=== PATIENT | male | born 1970 | race Caucasian/White ===

== ENCOUNTER 2017-07-10 22:51 | Emergency (ER) | payer BC ==
[2017-07-10] MEDS ORDERED: PREDNISONE 20 MG TABLET PO ONE (23:30)
[2017-07-10] MEDS ORDERED: FAMOTIDINE 20 MG TABLET PO ONE (23:30)
--- NOTE | 2017-07-10 23:36 | ER Document Report ---
ED ENT - General Stated Complaint: SWOLLEN TONSILS Time Seen by Provider: 07/10/17 23:05 Information source: Patient Notes: 46-year-old male presents emergency department complaining of the feeling of swelling in his throat. He reports he has a history of swelling with his uvula. He cannot tell if it is the uvula or another part of his oropharynx, such as his tonsils, that are swelling currently. He feels it more in the left portion of his oropharynx. He reports he has had episodes with uvula-itis in the past that are fairly short-lived. He reports that when it swells up, he can often relax and get up to go back down. This episode began this evening at approximately 930. He denies any choking or shortness of breath. He has not had any fluids to drink to know if he has difficulty swallowing, but he is handling his secretions well. The patient has recently started taking Humira for his psoriatic arthritis. He received his second dose recently. He has had uvulitis prior to having Humira, so I doubt that this plays a significant role in his current problem. Past Medical History - Social History Smoking Status: Never Smoker Family History: Reviewed & Not Pertinent Review of Systems - Review of Systems Notes: REVIEW OF SYSTEMS: CONSTITUTIONAL : Denies fever, chills, or sweats. Denies recent illness. EENT: Patient with sensation of swelling in his throat. See HPI. CARDIOVASCULAR: Denies chest pain. Denies palpitations or racing or irregular heart beat. RESPIRATORY: Denies cough, cold, or chest congestion. Denies shortness of breath, difficulty breathing, or wheezing. GASTROINTESTINAL: Denies abdominal pain or distention. Denies nausea, vomiting , or diarrhea. GENITOURINARY: Denies difficulty urinating, painful urination, burning, frequency, blood in urine, or discharge. MUSCULOSKELETAL: No acute change but history of osteoarthritis and psoriatic arthritis.. SKIN: History of psoriasis. LYMPHATIC: Denies swollen, enlarged glands. NEUROLOGICAL: Denies confusion or altered mental status. Denies passing out or loss of consciousness. Denies dizziness or lightheadedness. Denies headache. ALL OTHER SYSTEMS REVIEWED AND NEGATIVE. Physical Exam - Notes Notes: PHYSICAL EXAMINATION: GENERAL: Large body habitus. No acute distress.. HEAD: Atraumatic, normocephalic. ENT: The patient's uvula appears to be enlarged, slightly engorged, slightly boggy. This does not occlude his airway. His tonsils are visible but not significantly swollen. There is minimal erythema with the uvula. There is no discharge. No stridor present. NECK: Normal range of motion, supple without lymphadenopathy LUNGS: Breath sounds clear to auscultation bilaterally and equal. No wheezes rales or rhonchi. HEART: Regular rate and rhythm without murmurs ABDOMEN: Soft, nontender, nondistended abdomen. No guarding, no rebound. No masses appreciated. Musculoskeletal: Normal range of motion, no pitting or edema. No cyanosis. NEUROLOGICAL: Cranial nerves grossly intact. Normal speech, normal gait. Normal sensory, motor exams PSYCH: Normal mood, normal affect. SKIN: Psoriatic changes on his legs, particularly his right anterior lower leg. Course - Re-evaluation Re-evalutation: 07/10/17 23:35 Overall well-appearing 46-year-old male no acute distress with uvulitis. He reports that this is often a short-lived condition. We spoke about using Decadron versus prednisone. Given that is usually short-lived, we will use prednisone so that he can discontinue this medication if he is feeling better in 2 days. I have asked him to follow-up with his primary physician and I will also supply him with a referral to ear nose and throat, Dr. Montague. It is unclear if this pattern with uvulitis is viral or possibly a form of angioedema. He is tolerating p.o. and has no airway limitations. Patient understands to return to the emergency department if he has any shortness of breath, difficulty swallowing, or other urgent concerns. Discharge - Discharge Clinical Impression: Uvulitis Condition: Good Disposition: HOME, SELF-CARE Instructions: Uvula Swelling (OM) Additional Instructions: Your given 60 mg of prednisone in the emergency department along with famotidine. Continue prednisone as prescribed. If you have no symptoms for 2 days she may discontinue the prednisone. If your symptoms worsen, if you have difficulty swallowing, or if you have any shortness of breath, return to the emergency department immediately. Follow-up with your primary physician. You might also wish to follow-up with an ear nose and throat doctor. We are providing you with the name of Dr. Goldsmith. Prescriptions: Prednisone [Deltasone 20 mg Tablet] 20 mg PO DAILY #6 tablet Referrals: CÉSAR MONTAGUE DO [ASSOCIATE] - Follow up in 3-5 days
[2017-07-11 00:22] VITALS: BP 151/103
== END 2017-07-11 00:21 | disposition home or self-care (01) ==
LOC: ER 22:51
DX: K12.2 Cellulitis and abscess of mouth (principal); L40.50 Arthropathic psoriasis, unspecified
CPT/HCPCS: 99282; J7512

== ENCOUNTER → 2020-03-25 | Outpatient (CLI) | payer OTHER ==
--- NOTE | 2020-03-25 18:07 | RADIOLOGY REPORT (SQ) ---
EXAM DESCRIPTION: VENOUS BILATERAL LOWER IMAGES COMPLETED DATE/TIME: 03/25/2020 5:49 pm REASON FOR STUDY: CALF SWELLING R60.0 LOCALIZED EDEMA COMPARISON: None. TECHNIQUE: Dynamic and static terrell scale and color images acquired of both lower extremity venous sy stems. Selected spectral images acquired with additional compression and augmentation maneuvers. Imag es stored on PACS. LIMITATIONS: None. FINDINGS: RIGHT LEG COMMON FEMORAL AND FEMORAL: Normal phasicity, compression and augmentation. No visualized echogenic m aterial on terrell scale. No defects on color images. POPLITEAL: Normal compression and augmentation. No visualized echogenic material on terrell scale. No de fects on color images. CALF VESSELS: Normal compression and augmentation. No visualized echogenic material on terrell scale. No defects on color image. GSV AND SSV: Normal compression. No visualized echogenic material on terrell scale. No defects on color images. ANY DEEP VENOUS INSUFFICIENCY: Not evaluated. ANY EVIDENCE OF POPLITEAL CYST: No. OTHER: No other significant finding. LEFT LEG COMMON FEMORAL AND FEMORAL: Normal phasicity, compression and augmentation. No visualized echogenic m aterial on terrell scale. No defects on color images. POPLITEAL: Normal compression and augmentation. No visualized echogenic material on terrell scale. No de fects on color images. CALF VESSELS: Normal compression and augmentation. No visualized echogenic material on terrell scale. No defects on color images. GSV AND SSV: Normal compression. No visualized echogenic material on terrell scale. No defects on color images. ANY DEEP VENOUS INSUFFICIENCY: Not evaluated. ANY EVIDENCE POPLITEAL CYST: No. OTHER: No other significant finding. IMPRESSION: NO EVIDENCE DVT OR SVT IN EITHER LEG. TECHNICAL DOCUMENTATION: JOB ID: [id number] [employer]- All Rights Reserved Reading location - IP/workstation name: [email or web address]
== END ==
LOC: SP 16:24
PROVIDERS: ATTEND Physician Assistant
DX: M79.89 Other specified soft tissue disorders (principal)
CPT/HCPCS: 93970